=== PATIENT | female | born 1995 | race Caucasian/White ===

== ENCOUNTER 2020-03-31 10:15 | Emergency (ER) | payer OTHER ==
[~2020-03-31] VITALS: Ht 165.1 cm
[2020-03-31 12:09] VITALS: BP 136/79
[2020-03-31] MEDS ORDERED: HYDROcodone-ACET 7.5/325MG TAB PO ONE (12:15)
== END 2020-03-31 12:33 | disposition home or self-care (01) ==
LOC: EDBD 10:15 → ER 10:15
DX: G89.29 Other chronic pain (principal); G50.0 Trigeminal neuralgia